=== PATIENT | female | born 1980 | race Caucasian/White ===

== ENCOUNTER 2021-12-25 20:34 | Emergency (ER) | payer BC ==
[2021-12-25] MEDS ORDERED: Fluorescein 1 MG Ophth Strip EYELF ONE (20:59)
[2021-12-25] MEDS ORDERED: Proparacaine 0.5% Ophth Soln 15 ML Bottle EYERT STA (21:00)
[2021-12-25 21:04] VITALS: BP 135/69; PULSE 84
== END 2021-12-25 22:00 | disposition home or self-care (01) ==
LOC: JD.ED 20:34
DX: S05.02XA Injury of conjunctiva and corneal abrasion without foreign body, left eye, initial encounter (principal); Z88.5 Allergy status to narcotic agent
CPT/HCPCS: 99283